=== PATIENT | female | born 1975 | race Caucasian/White ===

== ENCOUNTER 2017-05-20 08:11 | Emergency (ER) | payer OTHER ==
[~2017-05-20] VITALS: Ht 157.5 cm; Wt 80.5 kg
[~2017-05-20 08:11] MED LIST: ACET500C5 PO; ASPI-535 PO; CEPH-443 PO; PHEN-537 PO; PHEN-538 PO
[2017-05-20 08:16] VITALS: Ht 157.5 cm; Wt 80.5 kg
[2017-05-20 08:59] LABS: URINE BLOOD (Dip) POC 2+ (NEGATIVE)
[2017-05-20] MEDS ORDERED: FLUC150T17 PO (09:19)
[2017-05-20] MEDS ORDERED: NITR-58 PO (09:19)
[2017-05-20] MEDS ORDERED: MICO100S4 VG (09:19)
--- NOTE | 2017-05-20 11:01 | ERD ---
ER Documentation Chief Complaint Date/Time DATE: 05/20/17 TIME: 10:56 Chief Complaint flanl/back pain and pain with urination x 1 week HPI 41 yr old female complaining of dysuria and urinary frequency 1 week. Denies back pain. Denies fever. Denies hematuria. Denies vaginal discharge. No history of STDs. Denies any sexual partners. Last normal menstrual period was 2 weeks ago. Denies medical problems. NKDA. ROS All systems reviewed and are negative except as per history of present illness. Medications Home Meds Active Scripts Fluconazole* (Diflucan*) 150 Mg Tablet, 150 MG PO ONCE, #1 TAB Prov:MONROE MCCARTHY PA-C 05/20/17 Miconazole Nitrate (Miconazole 7) 100 Mg Supp.vag, 100 MG VG QHS, #7 SUPP.VAG Prov:MONROE MCCARTHY PA-C 05/20/17 Nitrofurantoin Monohyd Macrocr* (Macrobid*) 100 Mg Capsr, 100 MG PO BID for 14 Days, CAP Prov:MONROE MCCARTHY PA-C 05/20/17 Acetaminophen* (Tylophen*) 500 Mg Capsule, 1 CAP PO Q6H Y for PAIN AND OR ELEVATED TEMP, #20 CAP Prov:PRUDENCE MORENO PA-C 07/31/16 Phenazopyridine Hcl* (Pyridium*) 200 Mg Tab, 200 MG PO TID Y for URINARY PAIN, # 6 TAB Prov:ANDREW TERRY MD 06/16/16 Phenazopyridine Hcl* (Pyridium*) 100 Mg Tab, 100 MG PO TID Y for URINARY PAIN, # 8 TAB Prov:JENAE JACKSON PA-C 05/29/16 Cephalexin* (Keflex*) 500 Mg Capsule, 500 MG PO QID for 7 Days, CAP Prov:JENAE JACKSON PA-C 05/29/16 Reported Medications Aspirin Ec (Aspir 81) 81 Mg Tablet.dr, 81 MG PO DAILY 05/11/13 Allergies Allergies: Coded Allergies: oxycodone HCl (Verified Allergy, Unknown, 05/20/17) PMhx/Soc History of Surgery: Yes (heart surgery due to heart murmur) Anesthesia Reaction: No Hx Neurological Disorder: No Hx Respiratory Disorders: No Hx Cardiac Disorders: No Hx Psychiatric Problems: Yes (ANXIETY ) Hx Miscellaneous Medical Probl: No (UTI) Hx Alcohol Use: No Hx Substance Use: No Hx Tobacco Use: No Smoking Status: Never smoker Physical Exam Vitals Vital Signs Date Time Temp Pulse Resp B/P Pulse Ox O2 Delivery O2 Flow Rate FiO2 05/20/17 08:16 98.3 84 19 132/78 100 Physical Exam GENERAL: The patient is well-appearing, well-nourished, in no acute distress CHEST: Clear to auscultation bilaterally. There are no rales, wheezes or rhonchi. HEART: Regular rate and rhythm. No murmurs, clicks, rubs or gallops. No S3 or S4. ABDOMEN:Soft, nontender and nondistended. Good bowel sounds. No rebound or guarding. No gross peritonitis. No gross organomegaly or masses. No Cason sign or McBurney point tenderness. Mild suprapubic tenderness BACK: No midline or flank tenderness. Results 24 hrs Laboratory Tests Test 05/20/17 09:07 Bedside Urine pH (LAB) 5.0 Bedside Urine Protein (LAB) Negative Bedside Urine Glucose (UA) Negative Bedside Urine Ketones (LAB) Negative Bedside Urine Blood 2+ Bedside Urine Nitrite (LAB) Negative Bedside Urine Leukocyte Esterase (L Trace Procedures/MDM MDM: 41-year-old female complaining of dysuria and urinary frequency. Patient has a history of yeast infections I will treat prophylactically. Patient's urine does show small signs of infection so I will treat with antibiotics. I have low suspicion for acute abdomen as patient's exam is non-concerning. Patient is not complaining of severe pelvic pains I will switch for PID however pelvic was deferred. I have low suspicion for pelvic emergency as patient is not complaining of severe pelvic pain. Patient's vital signs are stable patient is nontoxic-appearing. Patient is told symptoms change or worsen to return the emergency room. All questions answered at discharge Departure Diagnosis: Primary Impression: UTI (lower urinary tract infection) Condition: Stable Patient Instructions: Understanding Urinary Tract Infections (UTIs) Referrals: [facility] (PCP) Additional Instructions: FOLLOW UP WITH YOUR PRIMARY CARE PHYSICIAN TOMORROW.Return to this facility if you are not improving as expected. MONROE MCCARTHY PA-C May 20, 2017 11:01
== END 2017-05-20 09:34 | disposition home or self-care (01) ==
LOC: FTE 08:11
DX: N39.0 Urinary tract infection, site not specified (principal); Z79.82 Long term (current) use of aspirin
CPT/HCPCS: 81003; Z7502; 99283

== ENCOUNTER 2017-10-22 08:12 | Emergency (ER) | END 2017-10-22 09:42 | disposition home or self-care (01) ==

== ENCOUNTER 2017-12-13 05:45 | Emergency (ER) | END 2017-12-13 08:49 | disposition home or self-care (01) ==

== ENCOUNTER 2018-04-07 01:04 | Emergency (ER) | END 2018-04-07 06:00 | disposition home or self-care (01) ==

== ENCOUNTER 2018-07-12 01:12 | Emergency (ER) | END 2018-07-12 09:54 ==